=== PATIENT | female | born 1970 | race Caucasian/White ===

== ENCOUNTER 2021-10-03 15:39 | Emergency (ER) | payer BC ==
[2021-10-03] MEDS: Ondansetron 4 MG/2 ML SDV IVPUSH ONE (16:29)
[2021-10-03] MEDS: Ketorolac 30 MG/ML SDV IVPUSH ONE (16:29)
[2021-10-03 16:47] VITALS: BP 115/76; PULSE 105
== END 2021-10-03 17:24 | disposition home or self-care (01) ==
LOC: VM.ED 15:39
DX: S93.402A Sprain of unspecified ligament of left ankle, initial encounter (principal); X50.1XXA Overexertion from prolonged static or awkward postures, initial encounter
CPT/HCPCS: 73610-LT; 96374; 96375; 99283; 99284-25; J1885; J2405

== ENCOUNTER 2022-02-08 07:43 | Day surgery (SDC) | payer BC ==
[~2022-02-08 07:43] MED LIST: Lactated Ringers 1,000 ML IV SCH; Sodium Chloride 0.9% 10 ML Syringe FLUSH PRN
[2022-02-08] MEDS ORDERED: Propofol 200 MG/20 ML SDV ONE (08:51)
[2022-02-08] MEDS ORDERED: fentaNYL 100 MCG/2 ML SDV ONE (08:52)
[2022-02-08] MEDS ORDERED: Ondansetron 8 MG in Sodium Chloride 0.9% 100 ML IV PRN (10:11)
[2022-02-08] MEDS ORDERED: Ondansetron 4 MG/2 ML SDV IV PRN (10:11)
[2022-02-08 10:24] VITALS: BP 125/68; PULSE 82
== END 2022-02-08 11:09 | disposition home or self-care (01) ==
LOC: VM.SDS 07:43
PROVIDERS: ATTEND Student in an Organized Health Care Education/Training Program
DX: K20.90 Esophagitis, unspecified without bleeding (principal); H50.40 Unspecified heterotropia; K22.2 Esophageal obstruction; Z79.899 Other long term (current) drug therapy
CPT/HCPCS: 00731; 43239; J2405; J2704; J3010; J7120

== ENCOUNTER 2024-07-17 10:04 | Emergency (ER) | payer OTHER ==
[2024-07-17] MEDS: Ketorolac 30 MG/ML SDV IM ONE (11:08)
[2024-07-17] MEDS: Ondansetron 4 MG/2 ML SDV IM ONE (11:10)
[2024-07-17] MEDS: diphenhydrAMINE 50 MG/ML SDV IM ONE (11:11)
[2024-07-17] MEDS: LORazepam 2 MG/ML SDV IM ONE (11:12)
[2024-07-17 12:23] VITALS: BP 141/90; PULSE 90
== END 2024-07-17 11:37 | disposition home or self-care (01) ==
LOC: VM.ED 10:04
DX: G43.909 Migraine, unspecified, not intractable, without status migrainosus (principal); G50.0 Trigeminal neuralgia; Z79.899 Other long term (current) drug therapy
CPT/HCPCS: 96372; 99283; J1200; J1885; J2060; J2405; 99284

== ENCOUNTER 2024-08-18 12:00 | Emergency (ER) | payer OTHER ==
[2024-08-18] MEDS ORDERED: Sodium Chloride 0.9% 10 ML Syringe FLUSH PRN (12:07)
[2024-08-18] MEDS: Ondansetron 4 MG/2 ML SDV IVPUSH ONE (12:39)
[2024-08-18] MEDS: Ketorolac 15 MG/ML SDV IVPUSH ONE (12:41)
[2024-08-18] MEDS: HYDROmorphone 1 MG/ML Syringe IVPUSH ONE (12:42)
[2024-08-18 12:58] LABS: BASOPHILS PERCENT AUTO 0.3 % (0.2-1.2); EOSINOPHILS ABSOLUTE AUTO 0.4 x10^3/uL (0.0-0.5); EOSINOPHILS PERCENT AUTO 4.3 % (0.0-4.0); HEMATOCRIT 41.6 % (33.0-47.0); IMMATURE GRAN ABSOLUTE AUTO 0.01 x10^3/uL (0.00-0.07); LYMPHOCYTES ABSOLUTE AUTO 2.5 x10^3/uL (1.0-4.8); LYMPHOCYTES PERCENT AUTO 25.1 % (25.0-50.0); MEAN CORPUSCULAR HEMOGLOBIN 29.4 pg (26.0-32.0); MEAN CORPUSCULAR HGB CONC 33.7 g/dL (32.0-36.0); MEAN CORPUSCULAR VOLUME 87.2 fL (78.0-93.0); MONOCYTES PERCENT AUTO 9.8 % (2.0-11.0); NEUTROPHILS ABSOLUTE AUTO 6.1 x10^3/uL (1.8-7.7); NEUTROPHILS PERCENT AUTO 60.4 % (50.0-80.0); PLATELET COUNT,PLT 284 x10^3/uL (130-400); RED BLOOD CELL COUNT 4.77 x10^6/uL (4.00-5.50); WHITE BLOOD CELL COUNT,WBC 10.1 x10^3/uL (4.0-10.0)
[2024-08-18 13:32] LABS: A/G RATIO 1.06; ALANINE AMINOTRANSFERASE,ALT 26 U/L (14-59); ALBUMIN 3.6 g/dL (3.4-5.0); ALKALINE PHOSPHATASE 120 U/L (46-116); ANION GAP 15.9 mmol/L (5-15); ASPARTATE AMNIOTRANSFERASE,AST 15 U/L (15-37); BILIRUBIN TOTAL 0.3 mg/dL (0.2-1.0); BLOOD UREA NITROGEN,BUN 15 mg/dL (7-18); C-REACTIVE PROTEIN < 0.50 mg/dL (<=0.50); CALCIUM 8.6 mg/dL (8.5-10.1); CARBON DIOXIDE,CO2 24 mmol/L (21-32); CHLORIDE,CL 105 mmol/L (98-107); CREATININE 0.7 mg/dL (0.55-1.02); ESTIMATED GFR 104 mL/min (>=60); GLUCOSE RANDOM 112 mg/dL (70-99); MAGNESIUM 1.9 mg/dL (1.8-2.4); POTASSIUM,K 3.9 mmol/L (3.5-5.1); SODIUM,NA 141 mmol/L (136-145)
[2024-08-18 16:40] VITALS: BP 132/74; PULSE 74
== END 2024-08-18 16:19 | disposition home or self-care (01) ==
LOC: VM.ED 12:00
DX: M54.16 Radiculopathy, lumbar region (principal); Z79.899 Other long term (current) drug therapy
CPT/HCPCS: 36415; 72148; 80053; 83605; 83735; 85025; 86140; 96374; 96375; 99284; J1171; J1885; J2405